=== PATIENT | male | born 1965 | race Caucasian/White ===

== ENCOUNTER 2017-01-11 10:44 | Emergency (ER) | payer MEDICAID, MEDICARE ==
[~2017-01-11] VITALS: Ht 172.7 cm; Wt 100.0 kg
[2017-01-11 10:44] VITALS: Ht 172.7 cm; Wt 100.0 kg
[~2017-01-11 10:44] MED LIST: CEPH-583 PO; FAMO20TA8 PO; INSU100V8 SQ; INSU200I SQ; IRON150C5 PO; METF1000 PO; NAPR-1119 PO; NAPR500T PO; SULF1TAB42 PO
--- OUTSIDE RECORDS SUMMARY | 2017-01-11 10:55 | XMS REPORT | Continuity of Care Document ---
Author Author [facility] Organization [facility] Address Unknown Phone Unavailable Support Name Relationship Address Phone BRETT HARRISON MD Caregiver [address] [place] [address] [place] [address] Unavailable YG GRANGER Next Of Kin [address] [place] [address] Insurance Providers Guarantor Murray Mcconnell Address [address] [place] [address] Email DENIED/NO TO PT PORTAL Payer Medicaid [place] Policy Number [id number] Subscriber's Name Murray Mcconnell Relationship 20 Self Chief Complaint and Reason for Visit Chief Complaint Low Back Pain or Injury Reason for Visit Cellulitis of right lower extremity Problems Active Problems Medical Problem Onset Date Status Cellulitis of right lower extremity Unknown Acute Chest wall pain Unknown Acute Diabetes type 2, uncontrolled Unknown Acute Occluded PICC line Unknown Acute Occluded PICC line Unknown Acute Open thigh wound Unknown Acute Osteomyelitis of ankle or foot Unknown Acute Skin infection Unknown Acute Suspected DVT (deep vein thrombosis) Unknown Uveitis Unknown Acute Medications Current Home Medications Medication Dose Units Route Directions Days Qty Instructions Start Date Cephalexin (Keflex) 500 Mg Capsule 1 Cap Oral Three Times A Day 7 Days 21 Capsule 03/16/16 Famotidine 20 Mg Tablet 20 Mg Oral Twice A Day 03/16/16 Insulin Glargine,Hum.rec.anlog (Lantus) 100 Unit/Ml Inj 50 Unit Sub-Q Twice Daily With Meals 07/08/15 Insulin Lispro (Humalog Kwikpen) 200 Unit/1 Ml Insuln.pen 20-25 Unit Sub-Q Three Times Daily With Meals 03/16/16 Iron Polysaccharide Complex (Ferrex 150) 150 Mg Capsule 150 Mg Oral Daily 03/16/16 Metformin Hcl (Glucophage) 1,000 Mg Tablet 1,000 Mg Oral Twice Daily With Meals 07/08/15 Naproxen (Naprosyn) 500 Mg Tablet 1 Tab Oral Twice A Day as needed for Pain 20 Tablet 03/16/16 Naproxen Sodium (Naproxen 220MG) 220 Mg Tablet 440 Mg Oral Twice Daily With Meals 03/16/16 Sulfamethoxazole/Trimethoprim (Bactrim Ds Tablet) 1 Each Tablet 1 Tab Oral Twice A Day 7 Days 14 Tablet Take 1 tablet, by mouth, 2 times a day. Social History Social History Problem Response Recorded Date/Time Onset Date Status Chewing Tobacco Status No 03/16/2016 10:48am Not Applicable Not Applicable Hx Substance Use No 03/16/2016 10:48am Not Applicable Not Applicable Hx Alcohol Use Y OCCASIONALLY 03/16/2016 10:48am Not Applicable Not Applicable Has the pt used tobacco in the last 12 months No 11/18/2014 10:49am Not Applicable Not Applicable Tobacco Usage none 10/31/2014 7:09pm Not Applicable Not Applicable Query Response Start Date Stop Date Smoking Status Never smoker Hospital Discharge Instructions No hospital discharge instructions. Plan of Care Discharge Date 03/16/16 2:53pm Disposition 01 DISCHARGED HOME, SELF-CARE Condition at Discharge Stable Instructions/Education Provided Cellulitis Prescriptions See Medication Section Referrals TOREY MENDOZA DO Address: [address] [place] [phone] Additional Instructions/Education You have a follow-up appointment with Dr. Mendoza on at [facility] Care Plan and Goals Physician Care Plan Problem: Cellulitis right lower extremity Goal: Follow up with primary care provider Instructions: Take medications and follow care plan as discussed/written Functional Status No functional status results. Allergies, Adverse Reactions, Alerts Allergen Type Severity Reaction Status Last Updated Penicillin Allergy Unknown Active 03/16/16 Clindamycin Allergy Intermediate UNCONTROLLABLE SHAKES Active 03/16/16 Daptomycin Allergy Unknown Active 03/16/16 Vancomycin Allergy Unknown Active 03/16/16 influenza virus vaccine ts 9978-2043 (36 mos up) Allergy Unknown Active 03/16/16 Immunizations Query Response on File Recorded Date/Time Hx Influenza Vaccination No 11/18/14 10:49am Hx Influenza Vaccination No 11/18/14 10:49am DTaP Vaccine History 201303/16/16 10:48am Influenza Vaccine Hx NONE 03/16/16 10:48am Tdap Vaccine Hx 201311/29/15 10:22am Vital Signs Acute Vital Signs Vital Response Date/Time Temperature (Fahrenheit) 98.2 deg F (96.8 - 99.1) 03/16/2016 2:53pm Temperature (Calculated Celsius) 36.05202 degrees C (36.0 - 37.3) 03/16/2016 2:53pm Pulse Rate (adult) 84 bpm (60 - 100) 03/16/2016 2:53pm Respiratory Rate 18 breaths/min (10 - 20) 03/16/2016 2:53pm O2 Sat by Pulse Oximetry 96 % (90 - 100) 03/16/2016 2:53pm Blood Pressure 166/76 mm Hg 03/16/2016 2:53pm Height (Feet) 5 feet 03/16/2016 10:30am Height (Inches) 10.00 inches 03/16/2016 10:30am Weight (Kilograms) 95.000 kg 03/16/2016 10:30am Body Mass Index (BMI) 30.0 03/16/2016 10:30am Results Laboratory Results Test Name Result Units Flags Reference Collection Date/Time Result Date/ Time Comments White Blood Count 8.5 T/MM3 4.5-11.0 03/16/2016 12:03pm 03/16/2016 12: 16pm Red Blood Count 3.81 M/MM3 L 4.50-5.90 03/16/2016 12:03pm 03/16/2016 12: 16pm Hemoglobin 11.2 GM/DL L 13.5-17.5 03/16/2016 12:03pm 03/16/2016 12:16pm Hematocrit 33.9 % L 41-53 03/16/2016 12:03pm 03/16/2016 12:16pm Mean Corpuscular Volume 89.0 UM3 80-100 03/16/2016 12:03pm 03/16/2016 12:16pm Mean Corpuscular Hemoglobin 29.4 UUG 26-34 03/16/2016 12:03pm 2015 12:16pm Mean Corpuscular Hemoglobin Concent 33.0 GM/DL 31-37 03/16/2016 12:03pm 03/16/2016 12:16pm RDW Standard Deviation 42.8 FL 36.9-50.2 03/16/2016 12:03pm 03/16/2016 12:16pm Platelet Count 355 T/MM3 130-400 03/16/2016 12:03pm 03/16/2016 12:16pm Mean Platelet Volume 10.2 UM3 9.4-12.4 03/16/2016 12:03pm 03/16/2016 12 :16pm Neutrophils (%) (Auto) 79.2 % H 33-66 03/16/2016 12:03pm 03/16/2016 12: 16pm Lymphocytes (%) (Auto) 12.4 % L 23-45 03/16/2016 12:03pm 03/16/2016 12: 16pm Monocytes (%) (Auto) 5.4 % 0-9.0 03/16/2016 12:03pm 03/16/2016 12:16pm Eosinophils (%) (Auto) 1.6 % 0-4 03/16/2016 12:03pm 03/16/2016 12:16pm Basophils (%) (Auto) 0.1 % 0-2 03/16/2016 12:03pm 03/16/2016 12:16pm Immature Granulocyte % (Auto) 1.3 % H 0.0-0.5 03/16/2016 12:03pm 2015 12:16pm Absolute Neutrophils (auto) 6.7 T/MM3 1.8-7.7 03/16/2016 12:03pm 2015 12:16pm Absolute Lymphocytes (auto) 1.1 T/MM3 1-4.8 03/16/2016 12:03pm 2015 12:16pm Absolute Monocytes (auto) 0.5 T/MM3 0-0.8 03/16/2016 12:03pm 2015 12:16pm Absolute Eosinophils (auto) 0.1 T/MM3 0-0.5 03/16/2016 12:03pm 2015 12:16pm Absolute Basophils (auto) 0.0 T/MM3 0-0.2 03/16/2016 12:03pm 2015 12:16pm Absolute Immature Granulocyte (auto 0.11 T/MM3 H 0.00-0.03 03/16/2016 12: 03pm 03/16/2016 12:16pm Icterus Index < 2 0-7 03/16/2016 12:03pm 03/16/2016 12:25pm Chemistry Specimen Hemolysis < 15 0-25 03/16/2016 12:03pm 03/16/2016 12:25pm 0-25: Specimen Exhibited No Hemolysis. Turbidity < 20 0-20 03/16/2016 12:0303/16/2016 12:25pm Sodium Level 137 MEQ/L 134-144 03/16/2016 12:03pm 03/16/2016 12:25pm Potassium Level 4.4 MEQ/L 3.6-5 03/16/2016 12:0303/16/2016 12:25pm Chloride Level 98 MEQ/L 98-107 03/16/2016 12:03pm 03/16/2016 12:25pm Carbon Dioxide Level 28 MEQ/L 22-30 03/16/2016 12:0303/16/2016 12: 25pm Anion Gap 11 MEQ/L 5-15 03/16/2016 12:03pm 03/16/2016 12:25pm Blood Urea Nitrogen 11.0 MG/DL -03/16/2016 12:03pm 03/16/2016 12: 25pm Creatinine 0.6 MG/DL L 0.8-1.5 03/16/2016 12:03pm 03/16/2016 12:25pm BUN/Creatinine Ratio 18 RATIO 6-26 03/16/2016 12:03pm 03/16/2016 12: 25pm Glomerular Filtration Rate Calc 143 03/16/2016 12:03pm 03/16/2016 12:25pm Glucose Level 423 MG/DL H 75-110 03/16/2016 12:03pm 03/16/2016 12:25pm Calculated Osmolality 281 MOSM/KG H 261-280 03/16/2016 12:03pm 2015 12:25pm Calcium Level 9.1 MG/DL 8.4-10.2 03/16/2016 12:0303/16/2016 12:25pm Total Bilirubin 0.50 MG/DL 0.20-1.30 03/16/2016 12:0303/16/2016 12: 25pm Alkaline Phosphatase 91 U/L 38-126 03/16/2016 12:03pm 03/16/2016 12: 25pm Total Protein 7.1 G/DL 6.3-8.2 03/16/2016 12:03pm 03/16/2016 12:25pm Albumin 3.6 G/DL 3.5-5.0 03/16/2016 12:0303/16/2016 12:25pm Globulin 3.5 G/DL 2.4-3.6 03/16/2016 12:03pm 03/16/2016 12:25pm Albumin/Globulin Ratio 1.0 RATIO L 1.1-2.2 03/16/2016 12:03pm 2015 12:25pm Aspartate Amino Transf (AST/SGOT) 12 U/L L 17-59 03/16/2016 12:03pm 12:25pm Alanine Aminotransferase (ALT/SGPT) 14 U/L L 21-72 03/16/2016 12:03pm 12:25pm Plasma Lactate 1.5 MMOL/L 0.6-2.2 03/16/2016 12:03pm 03/16/2016 12: 27pm Procalcitonin 0.08 NG/ML 03/16/2016 12:03pm 03/16/2016 1:00pm PCT </ =0.5 ng/mL - sepsis not likely; PCT >0.5 and </=2 ng/mL - sepsis possible; PCT >2 ng/mL - sepsis likely; PCT >/=10 ng/mL - systemic inflammatory response - sepsis or septic shock highly indicated. Microbiology Results Procedure Source Organism/Result Collection Date/Time Result Date/Time Result Status Blood Culture Peripheral/Iv Start CULTURE INITIATED - RESULTS PENDING 03/16 12:09pm 03/16/2016 12:13pm Preliminary Name: MURRAY MCCONNELL Unit #: [id number] : 1965 Sex: M Admit Date: Loc / Svc: ED Discharge Date: DIAGNOSTIC IMAGING REPORT Report #: [id number] [place], [place] Indication: ITS.REASON: right lower extremity significant pain and swelling PROCEDURE: US VENOUS DUPLEX, LOWER EXT RT: Encounter: Initial Comparison: None Technique: Color Doppler duplex and grayscale sonographic imaging of the right lower extremity was performed. Findings: There is no evidence for acute deep venous thrombosis in the right thigh. Specifically, serial graded compression was performed from the inguinal ligament to the popliteal bifurcation, on the right thigh, demonstrating appropriate compressibility of the deep venous system. In addition, color and pulsed Doppler demonstrate appropriate spontaneous flow, variation with respiration, and augmentation with calf compression. At the ankle, normal flow is identified in the posterior tibial veins; these vessels are also normal in caliber. Diffuse subcutaneous edema. Impression: No evidence of acute DVT in the right lower limb. . Procedures No known history of procedures. Encounters Encounter Location Arrival/Admit Date Discharge/Depart Date Attending Provider Departed Emergency Room [facility] 03/16/16 10:12am 03/16/16 2: 53pm BRETT HARRISON MD Recent Diagnosis
--- OUTSIDE RECORDS SUMMARY | 2017-01-11 10:55 | XMS REPORT ---
Author Author Roni Mendoza Organization [employer] Address Unknown Phone Unavailable Care Team Providers Care Implementation Coordinator Name Role Phone Roni Mendoza CP Unavailable Allergies No Known Allergies Problems Problem Type Condition ICD-9 Code Onset Dates Condition Status Problem Mixed hyperlipidemia 272.2 Active Problem Hypertension, benign 401.1 Active Problem Diabetes Mellitus Type 2, not stated as uncontrolled 250.00 Active Problem Other and unspecified hyperlipidemia 272.4 Active Medications No Known Medications Results No Known Results Summary Purpose [employer] Submission
--- OUTSIDE RECORDS SUMMARY | 2017-01-11 10:55 | XMS REPORT ---
Author Author Roni Mendoza Organization [employer] Address Unknown Phone Unavailable Care Team Providers Care Rater Associate Name Role Phone Roni Mendoza CP Unavailable [...]
--- OUTSIDE RECORDS SUMMARY | 2017-01-11 10:56 | XMS REPORT ---
Author Author Jenny Feliciano [employer] Address Unknown Phone Unavailable Care Team Providers Care Cigar Maker Name Role Phone Jenny Feliciano CP Unavailable Allergies No Known Allergies Problems Problem Type Condition Code Onset Dates Condition Status Assessment Encounter for consultation Z71.9 Active Problem Mixed hyperlipidemia 272.2 Active Problem Other and unspecified hyperlipidemia 272.4 Active Assessment Type 2 diabetes mellitus without complications E11.9 Active Problem Low vision, both eyes H54.2 Active Problem Major depressive disorder, single episode, unspecified F32.9 Active Problem Gastro-esophageal reflux disease without esophagitis K21.9 Active Problem Essential (primary) hypertension I10 Active Problem Diabetes Mellitus Type 2, not stated as uncontrolled 250.00 Active Problem Type 2 diabetes mellitus without complications E11.9 Active Problem Hyperlipidemia, unspecified E78.5 Active Medications Medication Code System Code Instructions Start Date End Date Status Dosage Glucose Blood NDC 0 0 In Vitro BID May 12, 2016 as directed Effexor XR [facility] [place] [address]-56 75 MG Orally Once a day 1 capsule with food Toujeo SoloStar [facility] [place] [address] 300 u/mL subcutaneous Once a day at bedtime as directed Humalog KwikPen [facility] [place] [address]-62 100 UNIT/ML Subcutaneous 3 Times a day 20 units Metformin HCl [facility] [place] [address]-71 750 mg Orally Twice a day with meals 1 Results No Known Results Summary Purpose [employer] Submission
--- OUTSIDE RECORDS SUMMARY | 2017-01-11 10:56 | XMS REPORT ---
Author Author Roni Mendoza Organization [employer] Address Unknown Phone Unavailable Care Team Providers Care Java Mobile Developer Name Role Phone Roni Mendoza CP Unavailable Allergies No Known Allergies Problems Problem Type Condition Code Onset Dates Condition Status Problem Mixed hyperlipidemia 272.2 Active Problem Other and unspecified hyperlipidemia 272.4 Active Problem Low vision, both eyes H54.2 Active Problem Major depressive disorder, single episode, unspecified F32.9 Active Problem Gastro-esophageal reflux disease without esophagitis K21.9 Active Problem Essential (primary) hypertension I10 Active Problem Diabetes Mellitus Type 2, not stated as uncontrolled 250.00 Active Problem Type 2 diabetes mellitus without complications E11.9 Active Problem Hyperlipidemia, unspecified E78.5 Active Medications No Known Medications Results No Known Results Summary Purpose [employer] Submission
--- OUTSIDE RECORDS SUMMARY | 2017-01-11 10:56 | XMS REPORT ---
Author Author Roni Mendoza Organization [employer] Address Unknown Phone Unavailable Care Team Providers Care Product Safety Tester Name Role Phone Roni Mendoza CP Unavailable Allergies, Adverse Reactions, Alerts Substance Reaction Event Type Silver rash Drug Allergy Penicillin "tripped out" Drug Allergy Pregabalin headache Drug Allergy animal dander Info Not Available Non Drug Allergy Problems Problem Type Condition ICD-9 Code Onset Dates Condition Status Assessment Mixed hyperlipidemia 272.2 Active Problem Hypertension, benign 401.1 Active Problem Other and unspecified hyperlipidemia 272.4 Active Problem Mixed hyperlipidemia 272.2 Active Assessment Diabetes Mellitus Type 2, not stated as uncontrolled 250.00 Active Assessment Hypertension, benign 401.1 Active Assessment Acute osteomyelitis, ankle and foot 730.07 Active Assessment Hematuria, unspecified 599.70 Active Medications Medication Code System Code Instructions Start Date End Date Status Dosage Vancomycin HCl [facility] [address]-53 1500 Intravenous every 8 hours 1500mg Aspirin EC [facility] [address]-68 81mg daily 1 Ertapenem Sodium [facility] [address]-41 1 gram daily not defined Ertapenem Sodium [facility] [address]-58 1 GM Intravenous daily Nov 05, 2014 1 Tramadol HCl [facility] [address]-41 50mg every 6 hours 1 Insulin Glargine [facility] [address]-77 100 unit/ml 2 times a day 50 units Apidra [facility] [address]-54 100 unit/ml TID before meals 36 units SQ Desipramine HCl [facility] [address]-54 10mg QHS 1 Metformin HCl [facility] [address]-23 1000mg TID before meals 1 Vancomycin HCl [facility] [address]-88 1000 MG Intravenous every 8 hours Nov 05, 2014 1 Oxycodone-Acetaminophen [facility] [address]-00 5-325mg every 8 hours 1 Neomycin-Bacitracin Zn-Polymyx [facility] [address]-29 5-400-5000 TID apply topically Procedures Procedure Coding System Code Date OFFICE VISIT, EST-MOD. COMPLEXITY (25 MIN) CPT-4 67799 Nov 04, 2014 Vital Signs Date/Time: Nov 04, 2014 Height 70 in Weight 204.4 lbs Temperature 98.0 F Blood Pressure Diastolic 76 mm Hg Blood Pressure Systolic 110 mm Hg Cardiac Monitoring Heart Rate 100 /min BMI 29.33 Index Respiratory Rate 18 /min Results No Known Results Summary Purpose [employer] Submission
--- OUTSIDE RECORDS SUMMARY | 2017-01-11 10:56 | XMS REPORT ---
Author Author Roni Mendoza Organization [employer] Address Unknown Phone Unavailable Care Team Providers Care Manager Event Name Role Phone Roni Mendoza CP Unavailable [...]
--- OUTSIDE RECORDS SUMMARY | 2017-01-11 10:56 | XMS REPORT ---
Author Author Roni Mendoza Organization [employer] Address Unknown Phone Unavailable Care Team Providers Care Social Media Editor Name Role Phone Roni Mendoza CP Unavailable Allergies No Known Allergies Problems Problem Type Condition Code Onset Dates Condition Status Problem Type 2 diabetes mellitus without complications E11.9 Active Problem Hyperlipidemia, unspecified E78.5 Active Problem Major depressive disorder, single episode, unspecified F32.9 Active Problem Mixed hyperlipidemia 272.2 Active Problem Other and unspecified hyperlipidemia 272.4 Active Problem Essential (primary) hypertension I10 Active Problem Diabetes Mellitus Type 2, not stated as uncontrolled 250.00 Active Medications No Known Medications Results No Known Results Summary Purpose [employer] Submission
--- OUTSIDE RECORDS SUMMARY | 2017-01-11 10:56 | XMS REPORT ---
Author Author Roni Mendoza Organization [employer] Address Unknown Phone Unavailable Care Team Providers Care Slip Maker Name Role Phone Roni Mendoza CP Unavailable Allergies No Known Allergies Problems Problem Type Condition ICD-9 Code Onset Dates Condition Status Problem Hypertension, benign 401.1 Active Problem Other and unspecified hyperlipidemia 272.4 Active Problem Mixed hyperlipidemia 272.2 Active Medications No Known Medications Results No Known Results Summary Purpose [employer] Submission
--- OUTSIDE RECORDS SUMMARY | 2017-01-11 10:56 | XMS REPORT ---
Author Author Roni Mendoza Organization [employer] Address Unknown Phone Unavailable Care Team Providers Care Drafter Construction Name Role Phone Roni Mendoza CP Unavailable Allergies No Known Allergies Problems Problem Type Condition ICD-9 Code Onset Dates Condition Status Problem Hypertension, benign 401.1 Active Problem Other and unspecified hyperlipidemia 272.4 Active Problem Mixed hyperlipidemia 272.2 Active Medications No Known Medications Results No Known Results Summary Purpose [employer] Submission
--- OUTSIDE RECORDS SUMMARY | 2017-01-11 10:56 | XMS REPORT ---
Author Author Roni Mendoza Organization [employer] Address Unknown Phone Unavailable Care Team Providers Care Diamond Sizer Name Role Phone Roni Mendoza CP Unavailable Allergies No Known Allergies Problems Problem Type Condition ICD-9 Code Onset Dates Condition Status Problem Hypertension, benign 401.1 Active Problem Other and unspecified hyperlipidemia 272.4 Active Problem Mixed hyperlipidemia 272.2 Active Assessment Acute osteomyelitis, ankle and foot 730.07 Active Medications No Known Medications Results No Known Results Summary Purpose [employer] Submission
--- OUTSIDE RECORDS SUMMARY | 2017-01-11 10:56 | XMS REPORT ---
Author Author Roni Mendoza Organization [employer] Address Unknown Phone Unavailable Care Team Providers Care Geometry Teacher Name Role Phone Roni Mendoza CP Unavailable [...]
--- OUTSIDE RECORDS SUMMARY | 2017-01-11 10:56 | XMS REPORT | Continuity of Care Document ---
Author Author [facility] Organization [facility] Address Unknown Phone Unavailable Support Name Relationship Address Phone KATHRINSHEFALI TOREY Forrester DO Caregiver [address] [phone] DL CORTES MD Caregiver [address] [place] Cantu [place] [phone] YG GRANGER Next Of Kin [address] [place] [address] Insurance Providers Payer Name Policy Number Subscriber Name Relationship [employer] Other [id number] RhodaefrainGiselle sandoval 01 Spouse Problems Medical Problems Problem Onset Date Status Occluded PICC line Unknown Active Osteomyelitis of ankle or foot Unknown Active Occluded PICC line Unknown Active Medications Medication Dose Route Sig Days/Qty Instructions Order Date Discontinued Date Status Oxycodone HCl/Acetaminophen 5 Mg PO THREE TIMES A DAY Take 1 tablet, by mouth, 3 times a day. 10/31/14 Active Vancomycin/0.9% Sod Chloride 1 G 10/31/14 Active Ertapenem Sodium 10/31/14 Active Desipramine HCl 10/31/14 Active Tramadol HCl 50 Mg PO FOUR TIMES DAILY 10/31/14 Active Insulin Glargine,Hum.rec.anlog 40 Unit SQ 10/31/14 Active Neomy Sulf/Bacitrac Zn/Poly 10/31/14 Active Insulin Glulisine 1 Dose SQ 10/31/14 Active Aspirin 1 Tab PO DAILY 10/31/14 Active Metformin HCl 1 Tab PO THREE TIMES DAILY WITH MEALS Take one tablet, by mouth, twice daily with meals 10/31/14 Active [Centrum] 10/31/14 Active Social History Social History Problem Response Recorded Date/Time Hx Alcohol Use No 10/31/2014 5:05pm Has the pt used tobacco in the last 12 months No 11/18/2014 10:49am Tobacco Usage none 10/31/2014 7:09pm Hospital Discharge Instructions No hospital discharge instructions. Plan of Care No plan of care. Functional Status Query Response Date Recorded Physical Hygiene Self October 31, 2014 5:05pm Physical Hygiene Self October 31, 2014 5:05pm Allergies, Adverse Reactions, Alerts Allergen Type Severity Reaction Status Last Updated Penicillin Allergy Unknown Active 10/31/14 flu vaccine ts (36mos+) Allergy Unknown Active 10/31/14 Immunizations Name Given Type Hx Influenza Vaccination No Historical Hx Influenza Vaccination No Historical Vital Signs Acute Vital Signs Vital Response Date/Time Temperature (Fahrenheit) 98.2 deg F (96.8 - 99.1) Temperature (Calculated Celsius) 36.23330 degrees C (36.0 - 37.3) Pulse Rate (adult) 58 bpm (60 - 100) Respiratory Rate 14 breaths/min (10 - 20) O2 Sat by Pulse Oximetry 98 % (90 - 100) Oxygen Delivery Method Room Air Blood Pressure 138/71 mm Hg Blood Pressure Source Automatic Cuff Results Test Source Date Result Interp. Ref. Range Comments Alanine Aminotransferase (ALT/SGPT) December 02, 2014 12:08pm 49 U/L N 21- 72 Albumin December 02, 2014 12:08pm 4.3 G/DL N 3.5-5.0 Albumin/Globulin Ratio December 02, 2014 12:08pm 1.2 RATIO N 1.1-2.2 Alkaline Phosphatase December 02, 2014 12:08pm 109 U/L N 38-126 Anion Gap December 02, 2014 12:08pm 13 MEQ/L N 5-15 Aspartate Amino Transf (AST/SGOT) December 02, 2014 12:08pm 27 U/L N 17-59 BUN/Creatinine Ratio December 02, 2014 12:08pm 24 RATIO N 6-26 Basophils # (Auto) December 02, 2014 12:08pm 0.0 T/MM3 N 0-0.2 Basophils (%) (Auto) December 02, 2014 12:08pm 0.3 % N 0-2 Blood Urea Nitrogen December 02, 2014 12:08pm 22.0 MG/DL H 9-20 C-Reactive Protein December 02, 2014 12:08pm 9.6 MG/L H 0-9 Calcium Level December 02, 2014 12:08pm 9.2 MG/DL N 8.4-10.2 Calculated Osmolality December 02, 2014 12:08pm 278 MOSM/KG N 261-280 Carbon Dioxide Level December 02, 2014 12:08pm 27 MEQ/L N 22-30 Chemistry Specimen Hemolysis December 02, 2014 12:08pm < 15 0-25 0-25: No Hemolysis.26-70: Slight Hemolysis - can falsely elevate K and Urine Protein. 71-285: Moderate Hemolysis - can falsely elevate K, Troponin I, CA 19-9, PTH, CSF GLucose, and Urine Protein, and can falsely decrease Phenytoin. 286-999: Gross Hemolysis - can falsely elevate K, Troponin I, CA 19-9, PTH, CSF Glucose, and Urine Protine, and can falsely decrease Phenytoin. Recommend specimen recollection. Chloride Level December 02, 2014 12:08pm 99 MEQ/L N 98-107 Creatinine December 02, 2014 12:08pm 0.9 MG/DL N 0.8-1.5 Eosinophils # (Auto) December 02, 2014 12:08pm 0.1 T/MM3 N 0-0.5 Eosinophils (%) (Auto) December 02, 2014 12:08pm 1.7 % N 0-4 Erythrocyte Sedimentation Rate December 02, 2014 12:08pm 14 mm/hr - Sedimentation Rate performed at [facility], [address] [place], [place] [id number] Marine Electronics Repairer Keenan Pitts DO Globulin December 02, 2014 12:08pm 3.6 G/DL N 2.4-3.6 Glomerular Filtration Rate Calc December 02, 2014 12:08pm 90 - Glucose Level December 02, 2014 12:08pm 225 MG/DL H 75-110 Hematocrit December 02, 2014 12:08pm 40.7 % L 41-53 Hemoglobin December 02, 2014 12:08pm 13.7 GM/DL N 13.5-17.5 Icterus Index December 02, 2014 12:08pm < 2 0-7 Immature Granulocyte # (Auto) December 02, 2014 12:08pm 0.02 T/MM3 N 0.00- 0.03 Immature Granulocyte % (Auto) December 02, 2014 12:08pm 0.3 % N 0.0-0.5 Lab Scanned Report December 03, 2014 1:42pm LAB RESULTS - SCANNED - Lymphocytes # (Auto) December 02, 2014 12:08pm 1.1 T/MM3 N 1-4.8 Lymphocytes (%) (Auto) December 02, 2014 12:08pm 19.5 % L 23-45 Mean Corpuscular Hemoglobin December 02, 2014 12:08pm 28.7 UUG N 26-34 Mean Corpuscular Hemoglobin Concent December 02, 2014 12:08pm 33.7 GM/DL N 31-37 Mean Corpuscular Volume December 02, 2014 12:08pm 85.1 UM3 N 80-100 Mean Platelet Volume December 02, 2014 12:08pm 9.9 UM3 N 9.4-12.4 Monocytes # (Auto) December 02, 2014 12:08pm 0.6 T/MM3 N 0-0.8 Monocytes (%) (Auto) December 02, 2014 12:08pm 9.4 % H 0-9.0 Neutrophils # (Auto) December 02, 2014 12:08pm 4.0 T/MM3 N 1.8-7.7 Neutrophils (%) (Auto) December 02, 2014 12:08pm 68.8 % H 33-66 Platelet Count December 02, 2014 12:08pm 284 T/MM3 N 130-400 Potassium Level December 02, 2014 12:08pm 4.4 MEQ/L N 3.6-5 RDW Standard Deviation December 02, 2014 12:08pm 39.7 FL N 36.9-50.2 Red Blood Count December 02, 2014 12:08pm 4.78 M/MM3 N 4.50-5.90 Sodium Level December 02, 2014 12:08pm 139 MEQ/L N 134-144 Total Bilirubin December 02, 2014 12:08pm 0.80 MG/DL N 0.20-1.30 Total Protein December 02, 2014 12:08pm 7.9 G/DL N 6.3-8.2 Turbidity December 02, 2014 12:08pm < 20 0-20 Vancomycin Level Trough December 02, 2014 12:08pm < 5.00 UG/ML L 15-20 White Blood Count December 02, 2014 12:08pm 5.8 T/MM3 N 4.5-11.0 Procedures Procedure Status Date Provider(s) HYDRATION IV INFUSION INIT completed 10/31/14 ROUTINE VENIPUNCTURE completed 11/01/14 ASSAY OF VANCOMYCIN completed 11/01/14 CHEMICAL CAUTERY TISSUE completed 11/13/14 ROUTINE VENIPUNCTURE completed 11/08/14 ASSAY OF VANCOMYCIN completed 11/08/14 JAVI SUBQ TISSUE 20 SQ CM/< completed 11/21/14 JAVI SUBQ TISSUE ADD-ON completed 11/21/14 [id number]"EQUAL TO 48 SQ. IN., WITHOUT ADHESIVE BORDER, EACH DR completed Encounters Encounter Location Date/Time Registered [facility] 12/05/14 9:01am Registered [facility] 12/02/14 10:30am Registered [facility] 11/28/14 9:16am Registered [facility] 11/21/14 8:16am Registered [facility] 11/13/14 9:47am Registered [facility] 11/08/14 1:38pm Registered [facility] 11/08/14 8:25am Registered [facility] 11/01/14 11:56am Departed Emergency Room [facility] 10/31/14 4:55pm
--- OUTSIDE RECORDS SUMMARY | 2017-01-11 10:56 | XMS REPORT ---
Author Author Roni Mendoza Organization [employer] Address Unknown Phone Unavailable Care Team Providers Care Beauty Specialist Name Role Phone Roni Mendoza CP Unavailable [...]
--- OUTSIDE RECORDS SUMMARY | 2017-01-11 10:56 | XMS REPORT | Continuity of Care Document ---
Demographics Preferred Language Unknown Marital Status Unknown Uatsdin Affiliation Unknown Race Unknown Ethnic Group Unknown Author Author [facility] Organization [facility] Address Unknown Phone Unavailable Support Name Relationship Address Phone BRETT HARRISON MD Caregiver [address] [place] [address] [place] [phone] Advance Directives Directive Response Recorded Date/Time Advanced Directives Type None 10/31/14 5:00pm Problems Medical Problems Problem Onset Date Status [...] Date/Time Hx Alcohol Use No 10/31/2014 5:05pm Query Response Start Date Stop Date Smoking Status Never smoker Hospital Discharge Instructions No hospital discharge instructions. Plan of Care No plan of care. Functional Status Query Response Date Recorded Physical Hygiene Self October 31, 2014 5:05pm Disabilities None October 31, 2014 5:05pm Devices Used None October 31, 2014 5:05pm Dressing Self October 31, 2014 5:05pm Ambulation Self October 31, 2014 5:05pm Diet Self October 31, 2014 5:05pm Mental Status Alert Oriented October 31, 2014 5:05pm Disabilities None October 31, 2014 5:05pm Devices Used None October 31, 2014 5:05pm Physical Hygiene Self October 31, 2014 5:05pm Dressing Self October 31, 2014 5:05pm Ambulation Self October 31, 2014 5:05pm Diet Self October 31, 2014 5:05pm Allergies, Adverse Reactions, Alerts Allergen Type Severity Reaction Status Last Updated Penicillin Allergy Unknown Active 10/31/14 flu vaccine ts (36mos+) Allergy Unknown Active 10/31/14 Immunizations Name Given Type Hx Influenza Vaccination No Historical Hx Influenza Vaccination No Historical Vital Signs Acute Vital Signs Vital Response Date/Time Temperature (Fahrenheit) 97.3 deg F (96.8 - 99.1) Temperature (Calculated Celsius) 36.18659 degrees C (36.0 - 37.3) Pulse Rate (adult) 87 bpm (60 - 100) Respiratory Rate 12 breaths/min (10 - 20) O2 Sat by Pulse Oximetry 97 % (90 - 100) Blood Pressure 161/75 mm Hg Height 5 ft 10 in Weight 210 lb Body Mass Index 30.0 kg/m^2 Results No known relevant diagnostic tests, laboratory data and/or discharge summary. Procedures No known history of procedures. Encounters Encounter Location Date/Time Departed Emergency Room [facility] 10/31/14 4:55pm Recent Diagnosis
--- OUTSIDE RECORDS SUMMARY | 2017-01-11 10:56 | XMS REPORT ---
Author Author Roni Mendoza Organization [employer] Address Unknown Phone Unavailable Care Team Providers Care Coil Assembler Name Role Phone Roni Mendoza CP Unavailable [...]
--- OUTSIDE RECORDS SUMMARY | 2017-01-11 10:56 | XMS REPORT ---
Author Author Roni Mendoza Organization [employer] Address Unknown Phone Unavailable Care Team Providers Care Hand Molder Name Role Phone Roni Mendoza CP Unavailable [...]
--- OUTSIDE RECORDS SUMMARY | 2017-01-11 10:56 | XMS REPORT ---
Author Author Roni Mendoza Organization [employer] Address Unknown Phone Unavailable Care Team Providers Care Timber Management Specialist Name Role Phone Roni Mendoza CP [...]
--- OUTSIDE RECORDS SUMMARY | 2017-01-11 10:57 | XMS REPORT ---
Author Author Roni Mendoza Organization [employer] Address Unknown Phone Unavailable Care Team Providers Care Cilnical Scientist Name Role Phone Roni Mendoza CP Unavailable Allergies No Known Allergies Problems Problem Type Condition ICD-9 Code Onset Dates Condition Status Problem Mixed hyperlipidemia 272.2 Active Problem Hypertension, benign 401.1 Active Problem Diabetes Mellitus Type 2, not stated as uncontrolled 250.00 Active Problem Other and unspecified hyperlipidemia 272.4 Active Medications Medication Code System Code Instructions Start Date End Date Status Dosage Insulin Glargine [facility] [address]-02 100 UNIT/ML Subcutaneous Twice every day November 26, 2014 50 units Apidra [facility] [address]-39 100 UNIT/ML Injection, SQ three times a day before meals November 26, 2014 36 units as directed Results No Known Results Summary Purpose [employer] Submission
--- OUTSIDE RECORDS SUMMARY | 2017-01-11 10:57 | XMS REPORT ---
Author Author Roni Mendoza Organization [employer] Address Unknown Phone Unavailable Care Team Providers Care Fur Blowing Machine Operator Name Role Phone Roni Mendoza CP Unavailable [...]
--- OUTSIDE RECORDS SUMMARY | 2017-01-11 10:57 | XMS REPORT ---
Author Author Jenny Feliciano [employer] Address Unknown Phone Unavailable Care Team Providers Care Inclusion Specialist Name Role Phone Jenny Feliciano Unavailable Allergies No Known Allergies Problems Problem Type Condition Code Onset Dates Condition Status Assessment Encounter for consultation Z71.9 Active Assessment Type 2 diabetes mellitus without complications E11.9 Active Problem Type 2 diabetes mellitus without complications E11.9 Active Problem Hyperlipidemia, unspecified E78.5 Active Problem Major depressive disorder, single episode, unspecified F32.9 Active Problem Mixed hyperlipidemia 272.2 Active Problem Other and unspecified hyperlipidemia 272.4 Active Problem Essential (primary) hypertension I10 Active Problem Diabetes Mellitus Type 2, not stated as uncontrolled 250.00 Active Medications Medication Code System Code Instructions Start Date End Date Status Dosage Toujeo SoloStar [facility] [address] 300 u/mL subcutaneous Once a day at bedtime as directed Humalog KwikPen [facility] [address]-88 100 UNIT/ML Subcutaneous 3 Times a day 20 units Effexor XR [facility] [address]-27 75 MG Orally Once a day 1 capsule with food Metformin HCl [facility] [address]-95 750 mg Orally Twice a day with meals 1 Bactrim DS [facility] [address]-87 800-160 MG Orally Twice a day March 25, 2016 April 04, 2016 1 tablet Results No Known Results Summary Purpose [employer] Submission
--- OUTSIDE RECORDS SUMMARY | 2017-01-11 10:57 | XMS REPORT ---
Author Author Roni Mendoza Organization [employer] Address Unknown Phone Unavailable Care Team Providers Care Appointment Scheduler Name Role Phone Roni Mendoza CP Unavailable Allergies, Adverse Reactions, Alerts Substance Reaction Event Type Silver rash Drug Allergy Penicillin "tripped out" Drug Allergy Pregabalin headache Drug Allergy animal dander Info Not Available Non Drug Allergy Problems Problem Type Condition Code Onset Dates Condition Status Assessment Major depressive disorder, single episode, unspecified F32.9 Active Assessment Type 2 diabetes mellitus without complications E11.9 Active Assessment Cellulitis of other sites L03.818 Active Problem Type 2 diabetes mellitus without [...] Instructions Start Date End Date Status Dosage Metformin HCl [facility] [address]-41 750 mg Orally Twice a day with meals 1 Bactrim DS [facility] [address]-37 800-160 MG Orally Twice a day March 25, 2016 April 04, 2016 1 tablet Effexor XR [facility] [address]-79 75 MG Orally Once a day 1 capsule with food Humalog KwikPen [facility] [address]-34 100 UNIT/ML Subcutaneous 3 Times a day 20 units Toujeo SoloStar [facility] [address] 300 u/mL subcutaneous Once a day at bedtime as directed Procedures Procedure Coding System Code Date OFFICE VISIT, EST-LOW COMPLEXITY (15 MIN.) CPT-4 26054 April 02, 2016 Vital Signs Date/Time: April 02, 2016 Temperature 97.0 F Height 70 in Weight 220.8 lbs Blood Pressure Diastolic 82 mm Hg Blood Pressure Systolic 124 mm Hg Cardiac Monitoring Heart Rate 77 /min BMI 31.68 Index Oximetry 96 % Respiratory Rate 18 /min Results No Known Results Summary Purpose [employer] Submission
--- OUTSIDE RECORDS SUMMARY | 2017-01-11 10:57 | XMS REPORT ---
Author Author Roni Mendoza Organization [employer] Address Unknown Phone Unavailable Care Team Providers Care Community Relations Advisor Name Role Phone Roni Mendoza CP Unavailable Allergies No Known Allergies Problems Problem Type Condition ICD-9 Code Onset Dates Condition Status Problem Hypertension, benign 401.1 Active Problem Other and unspecified hyperlipidemia 272.4 Active Problem Mixed hyperlipidemia 272.2 Active Assessment Acute osteomyelitis, ankle and foot 730.07 Active Assessment Necrotizing fasciitis 728.86 Active Medications No Known Medications Results No Known Results Summary Purpose [employer] Submission
--- OUTSIDE RECORDS SUMMARY | 2017-01-11 10:57 | XMS REPORT ---
Author Author Roni Mendoza Organization [employer] Address Unknown Phone Unavailable Care Team Providers Care Business Liaison Officer Name Role Phone Roni Mendoza CP Unavailable Allergies No Known Allergies Problems Problem Type Condition ICD-9 Code Onset Dates Condition Status Problem Hypertension, benign 401.1 Active Problem Other and unspecified hyperlipidemia 272.4 Active Problem Mixed hyperlipidemia 272.2 Active Medications No Known Medications Results No Known Results Summary Purpose [employer] Submission
--- OUTSIDE RECORDS SUMMARY | 2017-01-11 10:57 | XMS REPORT ---
Author Author Roni Mendoza Organization [employer] Address Unknown Phone Unavailable Care Team Providers Care Solaris Administrator Name Role Phone Roni Mendoza CP Unavailable [...] Vitro BID May 12, 2016 as directed Results No Known Results Summary Purpose [employer] Submission
--- OUTSIDE RECORDS SUMMARY | 2017-01-11 10:57 | XMS REPORT ---
Author Author Roni Mendoza Organization [employer] Address Unknown Phone Unavailable Care Team Providers Care Welder Fitter Apprentice Name Role Phone Roni Mendoza CP Unavailable [...] not stated as uncontrolled 250.00 Active Assessment Acute osteomyelitis, ankle and foot 730.07 Active Assessment Cellulitis and abscess of foot, except toes 682.7 Active Medications Medication Code System Code Instructions Start Date End Date Status Dosage Aspirin EC [facility] [address]-71 81mg daily 1 Metformin HCl [facility] [address]-93 1000mg TID before meals 1 Tramadol HCl [facility] [address]-88 50mg every 6 hours 1 Insulin Glargine [facility] [address]-00 100 unit/ml 2 times a day 50 units Apidra [facility] [address]-09 100 unit/ml TID before meals 36 units SQ Oxycodone-Acetaminophen [facility] [address]-58 5-325mg every 8 hours 1 Desipramine HCl [facility] [address]-12 10mg QHS 1 Neomycin-Bacitracin Zn-Polymyx [facility] [address]-36 5-400-5000 TID apply topically Procedures Procedure Coding System Code Date CREATININE-MICROALB/CREAT RATION URINE CPT-4 53090 Nov 11, 2014 MICROALBUMIN- MICRO ALB/CREAT RATIO CPT-4 66657 Nov 11, 2014 OFFICE VISIT, EST-MOD. COMPLEXITY (25 MIN) CPT-4 54869 Nov 11, 2014 URINALYSIS, IN HOUSE CPT-4 85995 Nov 11, 2014 Vital Signs Date/Time: Nov 11, 2014 Height 70 in Weight 204.12 lbs Temperature 97.6 F Blood Pressure Diastolic 82 mm Hg Blood Pressure Systolic 130 mm Hg Cardiac Monitoring Heart Rate 90 /min BMI 29.28 Index Respiratory Rate 16 /min Results No Known Results Summary Purpose [employer] Submission
--- OUTSIDE RECORDS SUMMARY | 2017-01-11 10:57 | XMS REPORT ---
Author Author Roni Mendoza Organization [employer] Address Unknown Phone Unavailable Care Team Providers Care Engineer Systems Name Role Phone Roni Mendoza CP Unavailable [...]
--- OUTSIDE RECORDS SUMMARY | 2017-01-11 10:57 | XMS REPORT ---
Author Author Roni Mendoza Organization [employer] Address Unknown Phone Unavailable Care Team Providers Care Rubbish Collection Supervisor Name Role Phone Roni Mendoza CP Unavailable [...]
--- OUTSIDE RECORDS SUMMARY | 2017-01-11 10:57 | XMS REPORT ---
Author Roni Gonzales Organization [employer] Address Unknown Phone Unavailable Care Team Providers Care Cord Tire Builder Name Role Phone Roni Mendoza CP Unavailable Allergies, Adverse Reactions, Alerts Substance Reaction Event Type Silver rash Drug Allergy Penicillin "tripped out" Drug Allergy Pregabalin headache Drug Allergy animal dander Info Not Available Non Drug Allergy Problems Problem Type Condition Code Onset Dates Condition Status Assessment Type 2 diabetes mellitus without complications E11.9 Active Problem Mixed hyperlipidemia 272.2 Active Problem [...] E11.9 Active Problem Hyperlipidemia, unspecified E78.5 Active Assessment Low vision, both eyes H54.2 Active Assessment Gastro-esophageal reflux disease without esophagitis K21.9 Active Assessment Hyperlipidemia, unspecified E78.5 Active Assessment Essential (primary) hypertension I10 Active Medications Medication Code System Code Instructions Start Date End Date Status Dosage Effexor XR [facility] [address]-81 75 MG Orally Once a day 1 capsule with food Glucose Blood NDC 0 0 In Vitro BID May 12, 2016 as directed Humalog KwikPen [facility] [address]-15 100 UNIT/ML Subcutaneous 3 Times a day 20 units Metformin HCl [facility] [address]-40 1000 MG Orally Twice a day 1 tablet with meals Omeprazole [facility] [address]-89 20 MG Orally Once a day May 13, 2016 1 capsule Lisinopril [facility] [address]-71 5 MG Orally Once a day May 13, 2016 1 tablet Toujeo SoloStar [facility] [address] 300 u/mL subcutaneous Once a day at bedtime as directed Procedures Procedure Coding System Code Date OFFICE VISIT, EST-LOW COMPLEXITY (15 MIN.) CPT-4 50022 May 13, 2016 Vital Signs Date/Time: May 13, 2016 Temperature 98.5 F Height 70 in Weight 224 lbs Blood Pressure Diastolic 74 mm Hg Blood Pressure Systolic 138 mm Hg Cardiac Monitoring Heart Rate 84 /min BMI 32.14 Index Respiratory Rate 16 /min Results No Known Results Summary Purpose [employer] Submission
--- OUTSIDE RECORDS SUMMARY | 2017-01-11 10:57 | XMS REPORT ---
Author Author Roni Mendoza Organization [employer] Address Unknown Phone Unavailable Care Team Providers Care Indian Trader Name Role Phone Roni Mendoza CP Unavailable [...]
--- OUTSIDE RECORDS SUMMARY | 2017-01-11 10:57 | XMS REPORT ---
Author Author Roni Mendoza Organization [employer] Address Unknown Phone Unavailable Care Team Providers Care Repairer Typewriter Name Role Phone Roni Mendoza CP Unavailable [...]
--- NOTE | 2017-01-11 12:01 | ERPDOC ---
Departure Disposition Decision Date: Jan 11, 2017 Disposition Decision Time: 12:12 Disposition: 01 DISCHARGED HOME, SELF-CARE Impression Impression Impression: Primary Impression: Cellulitis of left lower extremity Additional Impression: Diabetic neuropathy Diabetes mellitus type: type 2 Diabetes mellitus complication detail: diabetic polyneuropathy Qualified Codes: E11.42 - Type 2 diabetes mellitus with diabetic polyneuropathy Severity: Moderate Condition: Stable Seen By: Physician only Patient Instructions: Diabetic Peripheral Neuropathy (ED) Problems/Meds/Labs Reviewed?: Yes Medications reviewed and manag: Yes Additional Instructions: Follow-up with primary medical physician of choice Recommend Lamisil or other [id number] antifungal Follow up care ordered?: Yes Mental Status: Alert, Oriented Scripts Naproxen (Naproxen) 500 Mg Tablet.dr 1 TAB PO BID Y for PAIN, #30 TAB 0 Refills Prov: BRETT HARRISON MD 01/11/17 Cephalexin (Keflex) 500 Mg Capsule 1 CAP PO TID for 7 Days, #21 CAP Prov: BRETT HARRISON MD 01/11/17 Sulfamethoxazole/Trimethoprim (Bactrim Ds Tablet) 1 Each Tablet 1 TAB PO BID for 7 Days, #14 TAB Take 1 tablet, by mouth, 2 times a day. Prov: BRETT HARRISON MD 01/11/17 HPI - Lower Extremity General Chief Complaint: Lower Extremity Pain Stated Complaint: L FOOT PAIN Time Seen by Provider: 12:01 Source: patient Exam Limitations: no limitations HPI - Lower Extremity Initial Comments Patient is a 52-year-old male presents emergency room for evaluation of left foot pain. Patient has a history of diabetic neuropathy, for the past 2 days is been having lightening shooting up his leg, also has some mild redness and a crack in his distal foot. Patient has been keeping this clean without. Patient states that the pain is unbearable he needs some Naprosyn, no acute distress Occurred At: home Onset/Timing: Rapid Duration: other (5 days) Pain/Injury Location: left foot 1 - Scaling consistent with fungal and crack Allergies: Coded Allergies: clindamycin (Verified Allergy, Intermediate, UNCONTROLLABLE SHAKES, ) PT REPORTS "INTERNAL CONVULTIONS FOR 3 HOURS AFTER MED ADMINISTRATION" Penicillins (Verified Allergy, Unknown, 01/11/17) daptomycin (Verified Allergy, Unknown, 01/11/17) influenza virus vaccine ts [id number] (36 mos up) (Verified Allergy, Unknown, 01/11/17) vancomycin (Verified Allergy, Unknown, 01/11/17) Past History Past Medical History Metabolic: diabetes, hypercholesterolemia Infectious: other Surgical History Joint: foot Vaccines Hx Influenza Vaccination: No Social History Smoking Status: Never smoker Substance Use Type: does not use Alcohol Intake: none Review of Systems Constitutional Constitutional: DENIES: appetite decrease, chills, dizziness, fever, weakness ENMT Sinuses: DENIES: congestion Cardiovascular Cardiac: DENIES: chest pain Pulmonary Respiratory: DENIES: cough GI Upper Abdomen: DENIES: pain Lower Abdomen: DENIES: pain Musculoskeletal General: see HPI Integumentary Skin: see HPI Endocrine Endocrine: DENIES: heat/cold intolerance Hematologic/Lymphatic Hematologic/Lymphatic: DENIES: anemia Physical Exam General General Nourishment: well nourished, well developed General Body Habitus: well groomed Vitals and Pain First Documented Vital Signs Date Time Temp Pulse Resp B/P Pulse Ox O2 Delivery O2 Flow Rate FiO2 01/11/17 10:44 98.8 83 16 176/71 98 Room Air Weight: Kilograms: 100.000 Height (feet): 5 Height (inches): 8.00 Triage Pain Scale: RN VS reviewed by Provider: Yes Neck (brief) Neck: NOT FOUND: adenopathy Respiratory (brief) Respiratory: FOUND: equal bilaterally Cardiovascular (brief) Cardiac: FOUND: regular rate Fastrak Foot/Ankle Foot/Ankle : Leg: Right Leg: NOT FOUND: contusion, discoloration, swelling, tender Ankle: NOT FOUND: decreased ROM, ecchymosis, foot drop, numbness, swelling, tender lat. foot, tender lat. malleolus, tender med. malleolus, tender mid foot , weakness Foot: discoloration (patient does have some mild discoloration of the distal left foot), NOT FOUND: numbness, tender 1st MTP joint, tender plantar fascia Posterior Tibial Pulse: 3+ Dorsalis Pedis Pulse: 3+ Integumentary (brief) Integumentary Brief: FOUND: dry, pink, warm Neurologic (brief) Neurological Brief: FOUND: CN w/o gross def to obs, motor-no gross deficits, sensory-no gross deficits Psychiatric (brief) Psychiatric Brief: FOUND: alert, oriented Differential Diagnoses Considering: Cellulitis, Plantar Fasciitis Progress Progress Progress Given patient's history we will treat with Keflex and Bactrim again for the mild erythema, Naprosyn for pain. Patient is to follow-up with primary medical physician BRETT HARRISON MD Jan 11, 2017 12:01
--- NOTE | 2017-01-11 12:02 | NUR ---
DR HARRISON IN
--- OUTSIDE RECORDS SUMMARY | 2017-01-11 12:09 | XMS REPORT | Continuity of Care Document ---
Author Author [facility] Organization [facility] Address Unknown Phone Unavailable Support Name Relationship Address Phone KATHRINSHEFALI TOREY Forrester DO Caregiver [address] [phone] DL CORTES MD Caregiver [address] [place]u [place] [phone] YG GRANGER Next Of Kin [address] [place] [address] Insurance Providers Payer Name Policy Number Subscriber Name Relationship [employer] Other [id number] RhodaefrainGiselle sandoval 01 Spouse Problems Medical Problems [...] F (96.8 - 99.1) Temperature (Calculated Celsius) 36.59391 degrees C (36.0 - 37.3) Pulse Rate [...] 14 mm/hr - Sedimentation Rate performed at [facility], [address] [place], [place] [id number] Die Cast Technician Keenan Pitts DO Globulin December 02, 2014 [...] 11/21/14 JAVI SUBQ TISSUE ADD-ON completed 11/21/14 [id number]"EQUAL TO 48 SQ. IN., WITHOUT ADHESIVE BORDER, EACH DR completed Encounters Encounter Location Date/Time Registered [facility] 12/05/14 9:01am Registered [facility] 12/02/14 10:30am Registered [facility] 11/28/14 9:16am Registered [facility] 11/21/14 8:16am Registered [facility] 11/13/14 9:47am Registered [facility] 11/08/14 1:38pm Registered [facility] 11/08/14 8:25am Registered [facility] 11/01/14 11:56am Departed Emergency Room [facility] 10/31/14 4:55pm
--- OUTSIDE RECORDS SUMMARY | 2017-01-11 12:09 | XMS REPORT | Continuity of Care Document ---
Demographics Preferred Language Unknown Marital Status Unknown Church Affiliation Unknown Race Unknown Ethnic Group Unknown Author Author [facility] Organization [facility] Address Unknown Phone Unavailable Support Name Relationship Address Phone BRETT HARRISON MD Caregiver [address] [place] [address] [place] [phone] Advance Directives Directive Response Recorded Date/Time Advanced [...] F (96.8 - 99.1) Temperature (Calculated Celsius) 36.42760 degrees C (36.0 - 37.3) Pulse Rate [...] Encounters Encounter Location Date/Time Departed Emergency Room [facility] 10/31/14 4:55pm Recent Diagnosis
[2017-01-11] MEDS ORDERED: SULF1TAB42 PO (12:14)
[2017-01-11] MEDS ORDERED: NAPR500T6 PO (12:14)
[2017-01-11] MEDS ORDERED: CEPH-583 PO (12:14)
[2017-01-11 12:30] VITALS: BP 185/85; PULSE 79; RESP 16; TEMP 98.5; O2SAT 97
== END 2017-01-11 12:30 | disposition home or self-care (01) ==
LOC: ED 10:44
DX: L03.116 Cellulitis of left lower limb (principal); E11.42 Type 2 diabetes mellitus with diabetic polyneuropathy; Z79.4 Long term (current) use of insulin